=== PATIENT | female | born 1975 | race African-American/Black ===

== ENCOUNTER 2021-07-10 12:26 | Emergency (ER) | payer OTHER ==
[~2021-07-10] VITALS: Ht 170.2 cm; Wt 77.1 kg
[2021-07-10 13:18] LABS: HEMATOCRIT 36.7 % (31.2-41.9); MEAN CORPUSCULAR HEMOGLOBIN 28.7 uug (24.7-32.8); MEAN CORPUSCULAR VOLUME 86.7 fL (75.5-95.3); PLATELET COUNT (AUTO) 349 K/uL (179-408)
[2021-07-10 13:31] LABS: CREATININE 0.8 mg/dL (0.6-1.3); POTASSIUM 3.9 mmol/L (3.5-5.1)
[2021-07-10 13:37] LABS: BILIRUBIN,DIRECT 0.1 mg/dL (0.0-0.2); BILIRUBIN,TOTAL 0.2 mg/dL (0.2-1.0)
[2021-07-10] MEDS ORDERED: ONDANSETRON 4 MG/2 ML VIAL IV ONE (13:45)
[2021-07-10] MEDS ORDERED: DICYCLOMINE HCL 20 MG/2 ML AMPUL IM SCH (13:45)
[2021-07-10] MEDS ORDERED: ONDANSETRON ODT 4 MG TAB.RAPDIS SL ONE (14:00)
[2021-07-10] MEDS ORDERED: ONDANSETRON ODT 4 MG TAB.RAPDIS ONE (14:02)
[2021-07-10] MEDS ORDERED: DICYCLOMINE HCL LIQ 10 MG/5 ML UDC ONE (14:03)
--- NOTE | 2021-07-10 14:11 | NUR ---
pt requesting food. pt deneis n/v at this time. mark kong provided.
[2021-07-10 14:15] LABS: *BILIRUBIN,URIN NEGATIVE (NEGATIVE); *CLARITY,URINE CLEAR (CLEAR); *COLOR,URINE YELLOW (YELLOW); *KETONES,URINE NEGATIVE (NEGATIVE); *UROBILINOGEN,URINE 0.2 E.U./dl (NORMAL); LEUKOCYTE ESTERASE ,URINE 1+ (NEGATIVE); NITRITE, URINE NEGATIVE (NEGATIVE); UGLUCOSE NEGATIVE (NEGATIVE)
[2021-07-10 14:19] LABS: *BLOOD, URINE TRACE (NEGATIVE); *URINE HCG, QUAL NEG (NEGATIVE)
[2021-07-10] MEDS ORDERED: NITR100C11 PO (14:37)
[2021-07-10] MEDS ORDERED: ONDA4TAB5 PO (14:37)
[2021-07-10] MEDS ORDERED: DICY20TA11 PO (14:37)
--- NOTE | 2021-07-10 15:08 | NUR ---
CALLED [facility] [phone] TO ARRANGE FOR TRANSFER, PLACED ON HOLD, NO RESPONSE.
--- NOTE | 2021-07-10 15:14 | NUR ---
Patient discharged to home in stable condition. Written and verbal after care instructions given. Patient verbalizes understanding of instructions. Stressed follow up or return to ER for worsening s/s.PT WALKED IN STEADY GAIT. PT D/TORI WITH N-95 MASK ON.
[2021-07-10 15:15] VITALS: BP 119/61
[2021-07-10 16:01] LABS: BACTERIA,URINE FEW /HPF (NONE SEEN); RBC,URINE 0-3 /HPF (0-3)
[2021-07-10 16:02] LABS: SQUAMOUS EPITHELIAL CELL,UR FEW /HPF (NONE SEEN)
== END 2021-07-10 15:16 | disposition home or self-care (01) ==
LOC: ER 12:26
DX: U07.1 COVID-19 (principal); N39.0 Urinary tract infection, site not specified; R11.10 Vomiting, unspecified; R19.7 Diarrhea, unspecified; F17.290 Nicotine dependence, other tobacco product, uncomplicated; Z79.899 Other long term (current) drug therapy; Z59.01 Sheltered homelessness
CPT/HCPCS: 36415; 83690; 84703; 85025; 87086; A4663; J0500; Q0162